=== PATIENT | male | born 1985 | race Caucasian/White ===

== ENCOUNTER 2016-10-18 16:06 | Emergency (ER) | payer OTHER ==
[~2016-10-18] VITALS: Ht 175.3 cm; Wt 88.5 kg
--- NOTE | ~2016-10-18 | CR142 ---
[facility] A Service of [facility] & [facility] RADIOLOGY TEXT RESULTS PATIENT: STAR SEGURA LOCATION: [facility] : [birth year] UNIT #: [id number] AGE: [address]: Lyudmila Vanessa SEX: M ORDER DR: [id number] [facility] [address] [place], [place] [address] [id number] E MR#: [id number] Acc #: [id number] NAME: STAR SEGURA : 1985 SEX: M STUDY DATE/TIME: 10/18/2016 18:38 UNIT: [facility] ROOM: STUDY DESCRIPTION: CR Hand Min 3 Views Rt Attending Physician: Lyudmila Vanessa Pa-C Ordering Physician: Ed Gregory Byrne M.D. Primary Care Physician: Lucie Villanueva M.D. MEDICAL IMAGING REPORT This report is preliminary unless electronic signature is present EXAM Hand 3 views right HISTORY Right hand pain near the fourth digit. Patient fell and caught himself with his hand. COMMENT 3 views of the right hand are reviewed. There is deformity of the fifth metacarpal consistent with an old healed fracture of the distal diametaphysis with apex dorsal angulation. No acute fracture, dislocation or radiopaque foreign body is seen. IMPRESSION Chronic healed fracture of the fifth metacarpal but no acute fracture or dislocation appreciated. Dictated by... Mary Gil M.D. THIS IS AN ELECTRONICALLY VERIFIED REPORT Mary Gil M.D. at 10/19/2016 2:31 PM ALIE/mindy TD: 10/19/2016 00:21 JOB #: [id number] MEDICAL IMAGING REPORT Page 1 of 1 COPY
== END 2016-10-18 19:33 | disposition home or self-care (01) ==
LOC: CED 16:06 → CFTX 16:06
DX: S60.221A Contusion of right hand, initial encounter (principal); B19.20 Unspecified viral hepatitis C without hepatic coma; F17.200 Nicotine dependence, unspecified, uncomplicated; W18.30XA Fall on same level, unspecified, initial encounter; Y92.009 Unspecified place in unspecified non-institutional (private) residence as the place of occurrence of the external cause
CPT/HCPCS: 29125; 73130; 99283

== ENCOUNTER → 2016-11-20 | Outpatient (CLI) | payer OTHER ==
--- NOTE | ~2016-11-20 | CT105 ---
[facility] A Service of [facility] & [facility] RADIOLOGY TEXT RESULTS PATIENT: STAR ESGURA [facility] : [birth year] UNIT #: [id number] AGE: [address]: Moses Garner MD SEX: M ORDER DR: [id number] [facility] [place], [place] [address] [id number] O MR#: [id number] Acc #: [id number] NAME: STAR SEGURA : 1985 SEX: M STUDY DATE/TIME: 11/20/2016 15:03 UNIT: [facility] ROOM: STUDY DESCRIPTION: CT Pelvis W Cont Attending Physician: Moses Garner M.D. Referring Physician: Moses Garner M.D. Ordering Physician: Moses Garner M.D. Primary Care Physician: Lucie Villanueva M.D. MEDICAL IMAGING REPORT This report is preliminary unless electronic signature is present EXAM CT pelvis without contrast HISTORY 31-year-old male with peroneal pain peroneal abscess x3 weeks axial images performed through the pelvis following IV contrast. Multiplanar reconstructed images reviewed. 100 mL Isovue-370 injection injected. TECHNIQUE This CT exam was performed with one or more of the following radiation dose reduction techniques: automatic control, adjustment of mA and/or kV according to patient size, and iterative reconstruction. FINDINGS There is a minimal asymmetry of the soft tissues in the left peroneal region but no discrete abscess and no definite focal inflammatory changes identified. The ischial rectal fossa appears normal. Prostate and bladder base appears normal. Perirectal soft tissues unremarkable. Internal pelvic structures appear normal to include the appendix. Osseous structures unremarkable. IMPRESSION Minimal asymmetry of the soft tissues along the floor of the pelvis and the peroneal region though no discrete drainable fluid collection or abscess is seen. No focal inflammatory change noted. There may also be very subtle enhancement along the anterior wall of the anal canal, but again a discrete fluid collection or abscess is not identified. Dictated by... Mumtaz Chavarria M.D. THIS IS AN ELECTRONICALLY VERIFIED REPORT Mumtaz Chavarria M.D. at 11/21/2016 3:09 PM [facility] A Service of [facility] & [facility] RADIOLOGY TEXT RESULTS PATIENT: STAR SEGURA LOCATION: [facility] #: [id number] : [birth year] UNIT #: [id number] AGE: [address]: Moses Garner MD SEX: M ORDER DR: KATHI/ming TD: 11/21/2016 14:25 JOB #: [id number] MEDICAL IMAGING REPORT Page 1 of 1 COPY
== END | disposition home or self-care (01) ==
LOC: CCAT 13:57
DX: R10.2 Pelvic and perineal pain (principal)
CPT/HCPCS: 72193; Q9967